=== PATIENT | male | born 1980 | race Asian ===

== ENCOUNTER 2020-05-25 13:01 | Emergency (ER) | payer MEDICAID, OTHER ==
[~2020-05-25] VITALS: Ht 175.3 cm; Wt 68.0 kg
[2020-05-25 14:17] VITALS: BP 118/94
== END 2020-05-25 14:30 | disposition home or self-care (01) ==
LOC: ER 13:01
DX: S01.01XA Laceration without foreign body of scalp, initial encounter (principal); X58.XXXA Exposure to other specified factors, initial encounter; Y93.89 Activity, other specified; Y92.89 Other specified places as the place of occurrence of the external cause; Y99.8 Other external cause status
CPT/HCPCS: 12002